=== PATIENT | female | born 1955 | race Caucasian/White ===

== ENCOUNTER → 2017-04-22 | Outpatient (CLI) | payer MEDICARE, OTHER ==
[~2017-04-22] MED LIST: ALEN10TA4 PO; ALEN70TA3 PO; APIX5TAB PO; COLE625T12 PO; ESTR1TAB15 PO; LACT1CAP6 PO; NAPR500T4 PO; OXYB5TAB7 PO
--- NOTE | 2017-04-22 15:47 | KCIC ---
Left lower extremity venous Doppler dated 04/22/2017. No comparison available. CLINICAL INDICATION: Swelling and pain. FINDINGS: Grayscale, color-flow and spectral waveform analysis performed to include the deep venous system of the bilateral lower extremity. There is occlusive filling defect within the left common femoral vein, superficial femoral vein, posterior tibial vein and peroneal veins of the calf. There is partially occlusive filling defect within the left popliteal vein. Normal compressibility, phasicity and augmentation of flow on the right. IMPRESSION: 1. Extensive left lower extremity deep vein thrombosis. 2. No evidence of DVT on the right. Results discussed with nurse at Dr. Rosales's office at approximately 3:20 PM on the day of exam. The patient will be sent to the ER for further evaluation. Electronically signed by: Salas Marcial MD (04/22/2017 3:20 PM) [facility]-[id number]
== END | disposition home or self-care (01) ==
LOC: KCIC US 14:29
PROVIDERS: ATTEND Nurse Practitioner Family
DX: I82.402 Acute embolism and thrombosis of unspecified deep veins of left lower extremity (principal); M79.89 Other specified soft tissue disorders
CPT/HCPCS: 93970

== ENCOUNTER → 2017-05-08 | Outpatient (CLI) | payer MEDICARE, OTHER ==
[2017-04-24 11:00] VITALS: BP 110/59
--- NOTE | 2017-05-08 16:07 | KCIC ---
EXT NON VASC LEFT History: Left knee pain, question synovial cyst Comparison: None. Findings: Limited sonographic images of the left popliteal fossa are submitted. No discrete fluid collection is demonstrated. Impression: 1. No fluid collection is demonstrated of the left popliteal fossa. Electronically signed by: Eyal Fong MD (05/08/2017 4:04 PM) [facility]-KCIC1
--- NOTE | 2017-05-08 16:09 | KCIC ---
KNEE LEFT 2V History: Left knee pain, history of DVT, limited mobility Comparison: None. Findings: 2 views of the left knee are submitted. There is bone demineralization, could be due to disuse. No acute fracture or significant suprapatellar joint effusion is identified. Impression: 1. No acute osseous abnormality is identified. There is bone demineralization. Electronically signed by: Eyal Fong MD (05/08/2017 4:05 PM) [facility]-KCIC1
== END | disposition home or self-care (01) ==
LOC: KCIC US 10:46
PROVIDERS: ATTEND Nurse Practitioner Family
DX: M81.8 Other osteoporosis without current pathological fracture (principal); M71.38 Other bursal cyst, other site; Z86.718 Personal history of other venous thrombosis and embolism
CPT/HCPCS: 73560; 76881

== ENCOUNTER 2017-08-05 00:40 | Inpatient (IN) | payer MEDICARE, OTHER ==
[2017-08-05] MEDS ORDERED: IV NORMAL SALINE 1000ML BAG 1,000 ML IV (01:00)
[2017-08-05 01:11] LABS: BILIRUBIN,URINE SMALL (NEG); CLARITY,URINE CLOUDY; COLOR,URINE AMBER; GLUCOSE,URINE NEGATIVE (NEG); NITRITE,URINE NEGATIVE (NEG); PROTEIN,URINE 100 mg/dL (NEG-TRACE); UROBILINOGEN,URINE 0.2 mg/dL (0.2 mg/dL)
[2017-08-05] MEDS: IV NORMAL SALINE 1000ML BAG 1,000 ML IV ×5 (01:15→23:38)
[2017-08-05] MEDS ORDERED: IBUPROFEN 400 MG TABLET. PO ×2 (01:18→01:19)
[2017-08-05 01:19] LABS: ADD MAN DIFF? YES; BASO # 0.1 x10^3/uL (0.0-0.2); BASO % 1 % (0-3); EOS % 0 % (0-3); HEMATOCRIT 36.8 % (36.0-47.0); HEMOGLOBIN 11.9 g/dL (12.0-15.5); LYMPH # 0.2 x10^3/uL (1.0-4.8); LYMPH % 2 % (24-48); MEAN CORPUSCULAR HEMOGLOBIN 26 pg (25-35); MEAN CORPUSCULAR HGB CONC 32 g/dL (31-37); MEAN CORPUSCULAR VOLUME 80 fL (79-100); MONO # 0.3 x10^3/uL (0.0-1.1); MONO % 3 % (0-9); NEUT # 9.4 x10^3uL (1.8-7.7); NEUT % 94 % (31-73); PLATELET COUNT 248 x10^3/uL (140-400); RED BLOOD COUNT 4.61 x10^6/uL (3.50-5.40); RED CELL DISTRIBUTION WIDTH 16.7 % (11.5-14.5)
[2017-08-05] MEDS: IBUPROFEN 400 MG TABLET. PO (01:20)
[2017-08-05] MEDS: ACETAMINOPHEN 500 MG TABLET PO (01:20)
[2017-08-05 01:23] LABS: BACTERIA,URINE FEW /HPF (0-FEW); RBC,URINE >40 /HPF (0-2)
[2017-08-05 01:24] LABS: AMORPHOUS SEDIMENT,UR PRESENT /HPF; HYALINE CASTS, URINE FEW /HPF; SQUAMOUS EPITHELIAL CELL,UR OCC /LPF
[2017-08-05 01:34] LABS: ANION GAP 10 (6-14); BLOOD UREA NITROGEN 22 mg/dL (7-20); BUN/CREATININE RATIO 28 (6-20); CALCIUM 8.8 mg/dL (8.5-10.1); CARBON DIOXIDE 26 mmol/L (21-32); CHLORIDE 103 mmol/L (98-107); CREATININE 0.8 mg/dL (0.6-1.0); GFR 72.9; GLUCOSE 130 mg/dL (70-99); POTASSIUM 4.2 mmol/L (3.5-5.1); SODIUM 139 mmol/L (136-145)
[2017-08-05 01:40] LABS: ALBUMIN 2.9 g/dL (3.4-5.0); ALBUMIN/GLOBULIN RATIO 0.7 (1.0-1.7); ALK PHOS 52 U/L (46-116); ALT (SGPT) 19 U/L (14-59); AST (SGOT) 32 U/L (15-37); MAGNESIUM 1.9 mg/dL (1.8-2.4); TOTAL BILIRUBIN 0.4 mg/dL (0.2-1.0); TOTAL PROTEIN 7.3 g/dL (6.4-8.2)
[2017-08-05 01:42] LABS: LACTIC ACID 3.3 mmol/L (0.4-2.0)
[2017-08-05 01:45] LABS: TROPONINI 0.099 ng/mL (0.000-0.055)
[2017-08-05 01:47] LABS: POC GLUCOSE 193 mg/dL (70-99)
[2017-08-05] MEDS: IV RINGERS,LACTATED 500ML 500 ML IV (01:50)
[2017-08-05] MEDS: ASPIRIN CHEWABLE 81 MG TABLET. PO (01:57)
[2017-08-05 01:58] LABS: INR 1.4 (0.8-1.1); PARTIAL THROMBOPLASTIN TIME 28 SEC (24-38); PROTHROMBIN TIME PATIENT 16.2 SEC (11.7-14.0)
[2017-08-05] MEDS: IV RINGERS,LACTATED 500ML 1,000 ML IV (02:20)
[2017-08-05] MEDS: PIPERACILLIN/TAZOBACTAM 3.375 GM in IV NORMAL SALINE 100ML 100 ML IV (02:27)
[2017-08-05 02:34] LABS: INFLUENZA A PATIENT NEGATIVE (NEGATIVE); INFLUENZA B PATIENT NEGATIVE (NEGATIVE); OBC FLU VALID
[2017-08-05] MEDS ORDERED: ONDANSETRON PF 4 MG/2 ML VIAL. IV ×2 (02:45→09:00)
[2017-08-05] MEDS: IV RINGERS,LACTATED 1000ML 1,000 ML IV (02:57)
[2017-08-05 03:55] LABS: % BANDS 12 % (0-9); % MONOS 3 % (0-10); % SEGS 85 % (35-66); PLT ESTIMATE ADEQUATE (ADEQUATE)
[2017-08-05] MEDS ORDERED: NOREPINEPHRIN PREMIX 250 ML IV (04:31)
[2017-08-05] MEDS: NOREPINEPHRIN PREMIX 250 ML IV (04:37)
[2017-08-05] MEDS: VANCOMYCIN 1GM IVPB FOR OMNI 250 ML IV (04:55)
[2017-08-05 05:24] LABS: LACTIC ACID 1.8 mmol/L (0.4-2.0)
[2017-08-05 06:08] LABS: TROPONINI 0.147 ng/mL (0.000-0.055)
[2017-08-05] MEDS ORDERED: PNEUMOCOCCAL VAX SCREEN BY RX. MC (07:30)
[2017-08-05] MEDS ORDERED: hydrALAZINE 20 MG/ML VIAL. IVP (09:00)
[2017-08-05] MEDS ORDERED: traMADol 50 MG TABLET PO (09:00)
[2017-08-05] MEDS ORDERED: MORPHINE SULFATE 4 MG/ML DISP.SYRIN. IV (09:00)
[2017-08-05] MEDS ORDERED: DOCUSATE SODIUM 100 MG CAPSULE. PO (09:00)
[2017-08-05 09:10] LABS: TROPONINI 0.086 ng/mL (0.000-0.055)
[2017-08-05 09:55] LABS: THYROID STIM HORMONE (TSH) 1.022 uIU/mL (0.358-3.74)
[2017-08-05 09:57] LABS: CKMB INDEX 0.9 % (0-4); CKMB MASS 4.3 ng/mL (0.0-3.6); CREATINE KINASE 496 U/L (26-192)
[2017-08-05] MEDS: cefTRIAXone IV Push 1 GM VIAL. IVP (10:42)
[2017-08-05] MEDS: AZITHROMYCIN 500 MG in IV DEXTROSE 5 %-0.2 % NACL 250 ML IV (10:42)
[2017-08-05] MEDS ORDERED: NAPROXEN 500 MG TABLET PO (10:45)
[2017-08-05] MEDS ORDERED: COLESEVELAM HCL 625 MG TABLET PO (11:00)
[2017-08-05] MEDS: LACTOBACILLUS RHAMNOSUS GG 1 CAPSULE. PO ×2 (11:04→20:49)
[2017-08-05] MEDS: APIXABAN 5 MG TABLET. PO ×2 (11:04→20:49)
[2017-08-05] MEDS: predniSONE 5 MG TABLET PO (11:04)
[2017-08-05] MEDS: OXYBUTYNIN CHLORIDE 5 MG TABLET PO ×2 (11:04→20:48)
[2017-08-05 11:24] LABS: PROCALCITONIN 0.64 ng/mL (0.00-0.10)
[2017-08-05] MEDS: ANTI-COAG MONITOR BY PHARMACY. MC (12:23)
[2017-08-05] MEDS ORDERED: NON FORMULARY ITEM (Alendronate Sodium (Fosamax) 1 TAB) PO (16:00)
[2017-08-05] MEDS: FAMOTIDINE 20 MG TABLET. PO (20:49)
[2017-08-05] MEDS ORDERED: ESTRADIOL 1 MG TABLET. PO (21:00)
[2017-08-06 03:21] LABS: MRSA BY PCR Negative (Negative)
[2017-08-06 03:55] LABS: ADD MAN DIFF? NO
[2017-08-06 03:58] LABS: BASO % 0 % (0-3); EOS # 0.1 x10^3/uL (0.0-0.7); EOS % 1 % (0-3); HEMATOCRIT 31.7 % (36.0-47.0); HEMOGLOBIN 10.5 g/dL (12.0-15.5); LYMPH # 0.7 x10^3/uL (1.0-4.8); LYMPH % 10 % (24-48); MEAN CORPUSCULAR HEMOGLOBIN 26 pg (25-35); MEAN CORPUSCULAR HGB CONC 33 g/dL (31-37); MEAN CORPUSCULAR VOLUME 79 fL (79-100); MONO # 0.3 x10^3/uL (0.0-1.1); MONO % 5 % (0-9); NEUT # 5.8 x10^3uL (1.8-7.7); NEUT % 85 % (31-73); PLATELET COUNT 226 x10^3/uL (140-400); RED CELL DISTRIBUTION WIDTH 16.3 % (11.5-14.5); WHITE BLOOD COUNT 6.8 x10^3/uL (4.0-11.0)
[2017-08-06 04:12] LABS: ANION GAP 6 (6-14); BLOOD UREA NITROGEN 7 mg/dL (7-20); CALCIUM 7.1 mg/dL (8.5-10.1); CARBON DIOXIDE 26 mmol/L (21-32); CHLORIDE 107 mmol/L (98-107); CREATININE 0.5 mg/dL (0.6-1.0); GFR 125.4; GLUCOSE 93 mg/dL (70-99); POTASSIUM 3.1 mmol/L (3.5-5.1); SODIUM 139 mmol/L (136-145)
[2017-08-06] MEDS: ACETAMINOPHEN 325 MG TABLET. PO (04:12)
[2017-08-06] MEDS: APIXABAN 5 MG TABLET. PO ×2 (08:32→20:27)
[2017-08-06] MEDS: OXYBUTYNIN CHLORIDE 5 MG TABLET PO ×2 (08:32→20:27)
[2017-08-06] MEDS: LACTOBACILLUS RHAMNOSUS GG 1 CAPSULE. PO ×2 (08:32→20:27)
[2017-08-06] MEDS: predniSONE 20 MG TABLET PO (08:32)
[2017-08-06] MEDS: cefTRIAXone IV Push 1 GM VIAL. IVP (08:33)
[2017-08-06] MEDS: IV NORMAL SALINE 1000ML BAG 1,000 ML IV (09:38)
[2017-08-06] MEDS: ANTI-COAG MONITOR BY PHARMACY. MC (09:41)
[2017-08-06] MEDS: IOHEXOL 300 MG/ML 100ML VIAL. IV (11:15)
[2017-08-06] MEDS: IOHEXOL 240 MG/ML 50ML VIAL. PO (11:15)
[2017-08-06] MEDS: AZITHROMYCIN 500 MG in IV DEXTROSE 5 %-0.2 % NACL 250 ML IV ×2 (12:28→13:12)
[2017-08-06] MEDS: POTASSIUM CHLORIDE 20 MEQ TABLET.ER. PO (12:28)
[2017-08-06] MEDS: POTASSIUM CL 40MEQ IN 0.9%NACL 1,000 ML IV (13:12)
[2017-08-06] MEDS: FAMOTIDINE 20 MG TABLET. PO (20:27)
[2017-08-07] MEDS: POTASSIUM CL 40MEQ IN 0.9%NACL 1,000 ML IV ×3 (01:23→15:53)
[2017-08-07 06:23] LABS: HEMATOCRIT 30.2 % (36.0-47.0); MEAN CORPUSCULAR HEMOGLOBIN 26 pg (25-35); MEAN CORPUSCULAR HGB CONC 33 g/dL (31-37); MEAN CORPUSCULAR VOLUME 79 fL (79-100); PLATELET COUNT 248 x10^3/uL (140-400); RED BLOOD COUNT 3.84 x10^6/uL (3.50-5.40); RED CELL DISTRIBUTION WIDTH 16.8 % (11.5-14.5); WHITE BLOOD COUNT 6.8 x10^3/uL (4.0-11.0)
[2017-08-07 06:41] LABS: ALBUMIN 1.8 g/dL (3.4-5.0); ALBUMIN/GLOBULIN RATIO 0.5 (1.0-1.7); ALK PHOS 43 U/L (46-116); ALT (SGPT) 29 U/L (14-59); ANION GAP 5 (6-14); AST (SGOT) 33 U/L (15-37); BLOOD UREA NITROGEN 7 mg/dL (7-20); BUN/CREATININE RATIO 14 (6-20); CALCIUM 6.4 mg/dL (8.5-10.1); CARBON DIOXIDE 27 mmol/L (21-32); CHLORIDE 111 mmol/L (98-107); CREATININE 0.5 mg/dL (0.6-1.0); GFR 125.4; GLUCOSE 100 mg/dL (70-99); POTASSIUM 3.9 mmol/L (3.5-5.1); SODIUM 143 mmol/L (136-145); TOTAL BILIRUBIN 0.2 mg/dL (0.2-1.0); TOTAL PROTEIN 5.3 g/dL (6.4-8.2)
[2017-08-07] MEDS: OXYBUTYNIN CHLORIDE 5 MG TABLET PO ×2 (07:50→20:51)
[2017-08-07] MEDS: APIXABAN 5 MG TABLET. PO ×2 (07:50→20:51)
[2017-08-07] MEDS: LACTOBACILLUS RHAMNOSUS GG 1 CAPSULE. PO ×2 (07:50→20:51)
[2017-08-07] MEDS: predniSONE 20 MG TABLET PO (07:51)
[2017-08-07] MEDS: cefTRIAXone IV Push 1 GM VIAL. IVP (07:53)
[2017-08-07 08:26] LABS: SEDIMENTATION RATE 30 (0-25)
[2017-08-07] MEDS: ANTI-COAG MONITOR BY PHARMACY. MC (10:35)
[2017-08-07] MEDS: FAMOTIDINE 20 MG TABLET. PO (20:51)
[2017-08-08] MEDS: POTASSIUM CL 40MEQ IN 0.9%NACL 1,000 ML IV ×3 (01:44→21:50)
[2017-08-08] MEDS: APIXABAN 5 MG TABLET. PO ×2 (08:41→20:32)
[2017-08-08] MEDS: OXYBUTYNIN CHLORIDE 5 MG TABLET PO ×2 (08:41→20:32)
[2017-08-08] MEDS: LACTOBACILLUS RHAMNOSUS GG 1 CAPSULE. PO ×2 (08:41→20:32)
[2017-08-08] MEDS: predniSONE 20 MG TABLET PO (08:42)
[2017-08-08] MEDS: IPRATRPIUM/ALBUTEROL 0.5/2.5MG 3 ML NEBU. NEB ×4 (09:30→19:48)
[2017-08-08] MEDS: ANTI-COAG MONITOR BY PHARMACY. MC (13:19)
[2017-08-08] MEDS: FAMOTIDINE 20 MG TABLET. PO (20:32)
[2017-08-09 05:04] LABS: ADD MAN DIFF? NO
[2017-08-09 05:13] LABS: BASO % 0 % (0-3); EOS % 0 % (0-3); HEMATOCRIT 31.2 % (36.0-47.0); HEMOGLOBIN 10.1 g/dL (12.0-15.5); LYMPH # 0.9 x10^3/uL (1.0-4.8); LYMPH % 13 % (24-48); MEAN CORPUSCULAR HEMOGLOBIN 26 pg (25-35); MEAN CORPUSCULAR HGB CONC 32 g/dL (31-37); MEAN CORPUSCULAR VOLUME 79 fL (79-100); MONO # 0.4 x10^3/uL (0.0-1.1); MONO % 5 % (0-9); NEUT % 82 % (31-73); PLATELET COUNT 300 x10^3/uL (140-400); RED BLOOD COUNT 3.94 x10^6/uL (3.50-5.40); RED CELL DISTRIBUTION WIDTH 17.1 % (11.5-14.5); WHITE BLOOD COUNT 7.3 x10^3/uL (4.0-11.0)
[2017-08-09 05:43] LABS: ANION GAP 7 (6-14); BLOOD UREA NITROGEN 7 mg/dL (7-20); CALCIUM 7.4 mg/dL (8.5-10.1); CARBON DIOXIDE 27 mmol/L (21-32); CHLORIDE 110 mmol/L (98-107); CREATININE 0.5 mg/dL (0.6-1.0); GFR 125.4; GLUCOSE 91 mg/dL (70-99); POTASSIUM 4.8 mmol/L (3.5-5.1); SODIUM 144 mmol/L (136-145)
[2017-08-09] MEDS: IPRATRPIUM/ALBUTEROL 0.5/2.5MG 3 ML NEBU. NEB ×2 (07:06→12:36)
[2017-08-09] MEDS: APIXABAN 5 MG TABLET. PO (09:23)
[2017-08-09] MEDS: OXYBUTYNIN CHLORIDE 5 MG TABLET PO (09:23)
[2017-08-09] MEDS: LACTOBACILLUS RHAMNOSUS GG 1 CAPSULE. PO (09:23)
[2017-08-09] MEDS: predniSONE 20 MG TABLET PO (09:27)
[2017-08-09] MEDS: POTASSIUM CL 40MEQ IN 0.9%NACL 1,000 ML IV (09:28)
[2017-08-09] MEDS: ANTI-COAG MONITOR BY PHARMACY. MC (11:32)
== END 2017-08-09 14:18 | disposition home or self-care (01) | DRG 871 ==
LOC: ER 00:40 → 6 SOUTH 08-06 15:50 → 1 WEST ICU 01:54
DX: A41.9 Sepsis, unspecified organism (principal); J18.9 Pneumonia, unspecified organism; R65.21 Severe sepsis with septic shock; N17.9 Acute kidney failure, unspecified; G71.0 Muscular dystrophy; E86.0 Dehydration; E44.1 Mild protein-calorie malnutrition; G11.9 Hereditary ataxia, unspecified; Z68.1 Body mass index [BMI] 19.9 or less, adult; E86.1 Hypovolemia; E87.6 Hypokalemia; K21.9 Gastro-esophageal reflux disease without esophagitis; M81.0 Age-related osteoporosis without current pathological fracture; Z82.49 Family history of ischemic heart disease and other diseases of the circulatory system; Z86.711 Personal history of pulmonary embolism; Z86.718 Personal history of other venous thrombosis and embolism; Z90.710 Acquired absence of both cervix and uterus; Z99.3 Dependence on wheelchair; Z88.2 Allergy status to sulfonamides; G70.9 Myoneural disorder, unspecified; D63.8 Anemia in other chronic diseases classified elsewhere; J20.9 Acute bronchitis, unspecified; Z74.01 Bed confinement status
CPT/HCPCS: 36415; 71045; 71260; 74177; 80048; 80053; 81001; 82533; 82553; 82962; 83605; 83735; 84145; 84443; 84484; 85007; 85025; 85027; 85610; 85651; 85730; 87040; 87641; 87804; 87804-59; 93005; 93306; 94640; 94760; 96361; 96374; 97162-GP; 97165-GO; 97530-GP; 97535-GO; 99291; 99291-25; J0456; J0696; J2543; J3370; J3480; J7030; J7120; J7512; J7620; P9612; Q9966; Q9967

== ENCOUNTER 2017-11-10 19:52 | Emergency (ER) | payer MEDICARE, OTHER | END 2017-11-10 21:48 | disposition home or self-care (01) | LOC: ER 19:52 | DX: T17.328A Food in larynx causing other injury, initial encounter (principal); K21.9 Gastro-esophageal reflux disease without esophagitis; Z88.2 Allergy status to sulfonamides; X58.XXXA Exposure to other specified factors, initial encounter; Y93.89 Activity, other specified; Y99.8 Other external cause status; Y92.89 Other specified places as the place of occurrence of the external cause | CPT/HCPCS: 71045; 99283 ==

== ENCOUNTER → 2017-11-10 | Outpatient (CLI) | payer MEDICARE, OTHER | END | disposition home or self-care (01) | LOC: KCIC DEXA 09:40 | DX: Z12.31 Encounter for screening mammogram for malignant neoplasm of breast (principal); Z13.820 Encounter for screening for osteoporosis; M85.89 Other specified disorders of bone density and structure, multiple sites; Z78.0 Asymptomatic menopausal state | CPT/HCPCS: 77063; 77067; 77080 ==

== ENCOUNTER → 2019-02-15 | Outpatient (CLI) | payer MEDICARE, OTHER ==
[2017-11-10 20:10] VITALS: BP 132/65
[~2019-02-15] MED LIST changes: -ALEN10TA4 PO; +ALEN10TA5 PO; +LEVO500T59 PO; +NAPR-514 PO; -NAPR500T4 PO; +PRED5TAB PO
--- NOTE | 2019-02-15 10:21 | RAD ---
MR#: [id number] Date of Study: 02/15/2019 Ordering Physician: BARRON LIGHT, Referring Physician: BARRON LIGHT, Tech: TIMOTHY Bolton, RDMS, RTR APPROVED REPORT Patient Location: OUT-PATIENT Indications PAD VELOCITY AND DOPPLER WAVEFORM ANALYSIS RIGHT cm/secWaveformSeverity LEFT cm/secWaveform Severity pCFA 90.4BiphasicpCFA 132.3Biphasic Prof Fem Art. 61.5Prof Fem Art. 69.4 Fem Art Prox. 92.5BiphasicFem Art Prox. 114.0Biphasic Fem Art Mid. 60.7BiphasicFem Art Mid. 69.4Biphasic Fem Art Dist. 99.1BiphasicFem Art Dist. 116.7Biphasic Pop Art(Fossa) 86.8BiphasicPop Art(AK) 64.3Biphasic APPLIED COMPUTER SCIENCE PROFESSOR Dist. 61.3BiphasicPTA Dist. 61.1Biphasic Per Art Dist.44.4BiphasicPer Art Dist.42.6Biphasic RADHA Dist. 88.0BiphasicATA Dist. 67.1Biphasic DPA 28BiphasicDPA 21Biphasic Findings Grayscale images of the bilateral lower extremity arterial vessels reveal moderate diffuse plaque. No high-grade focal stenosis is identified bilaterally in the common femoral to popliteal segments. Bel ow the knee there is three-vessel runoff in a biphasic wave pattern bilaterally. There is likely dist al small vessel disease involving the bilateral dorsalis pedis vessels. Critical Notification Critical Value: No <Conclusion> 1. Distal small vessel disease at the level of the dorsalis pedis without any focal high-grade obstru ction noted. Signed by : Barron Light, Electronically Approved : 02/15/2019 10:21:26
== END | disposition home or self-care (01) ==
LOC: US 08:41
PROVIDERS: ATTEND Internal Medicine Cardiovascular Disease
DX: I70.203 Unspecified atherosclerosis of native arteries of extremities, bilateral legs (principal); I73.89 Other specified peripheral vascular diseases
CPT/HCPCS: 93925

== ENCOUNTER 2020-02-04 17:40 | Inpatient (IN) | payer MEDICARE, OTHER ==
[~2020-02-04] VITALS: Ht 162.6 cm; Wt 41.3 kg
[~2020-02-04 17:40] MED LIST changes: -ALEN10TA5 PO; +ALEN10TA8 PO; +ESTR-113 PO; -ESTR1TAB15 PO; +OXYB5TAB10 PO; -OXYB5TAB7 PO
[2020-02-04] MEDS ORDERED: IV NORMAL SALINE 1000ML BAG 1,000 ML IV ONE ×2 (18:00→20:45)
[2020-02-04 18:49] LABS: BILIRUBIN,URINE NEGATIVE (NEG); CLARITY,URINE CLOUDY; COLOR,URINE YELLOW; NITRITE,URINE POSITIVE (NEG); PROTEIN,URINE NEGATIVE (NEG-TRACE); UROBILINOGEN,URINE 0.2 mg/dL (0.2 mg/dL)
--- NOTE | 2020-02-04 18:51 | RAD ---
Exam: CT head INDICATION: Weakness TECHNIQUE: Sequential axial images through the head were obtained without the administration of IV contrast. Comparisons: None FINDINGS: No focal parenchymal lesion or hemorrhage is identified. There is no midline shift or sulcal effacement. No acute vascular territory infarction is identified. Marroquin-white distinction is preserved. The ventricular system is within normal limits without compression hydrocephalus. The basal cisterns are well maintained. The visualized portions of the paranasal sinuses and mastoid air cells are well-pneumatized. No acute fractures. IMPRESSION: No acute intracranial abnormality. Exposure: One or more of the following in the visualized dose reduction techniques were utilized for this examination: 1. Automated exposure control 2. Adjustment of the MA and/or KV according to patient size Use of iterative of reconstructive technique Electronically signed by: Leanna Hoffman MD (02/04/2020 6:48 PM) [id number]
--- NOTE | 2020-02-04 18:53 | EKG ---
[facility] [address] [place] [address] Test Date: 2020-02-04 Test Time: 18:37:19 Pat Name: LINDA HERRERA Department: Room: Gender: F Juvenile Justice Specialist: LOU : 1955 Requested By: FARIBA CARRION Order Number: [id number] Reading MD: Measurements Intervals [place] Rate: 98 P: 90 [place]: 152 QRS: 66 QRSD: 72 T: 70 QT: 330 QTc: 423 Interpretive Statements SINUS RHYTHM OTHERWISE NORMAL ECG RI6.02 No previous ECG available for comparison
[2020-02-04 19:09] LABS: BACTERIA,URINE MANY /HPF (0-FEW); WBC,URINE TNTC /HPF (0-4)
--- NOTE | 2020-02-04 19:10 | RAD ---
Exam: Chest one view INDICATION: Weakness TECHNIQUE: Frontal view of the chest Comparisons: 11/10/2017 FINDINGS: The cardiomediastinal silhouette and pulmonary vessels are within normal limits. The lung and pleural spaces are clear. Chronic appearing rib fractures are noted. IMPRESSION: No acute cardiopulmonary process. Electronically signed by: Leanna Hoffman MD (02/04/2020 7:07 PM) [id number]
[2020-02-04 19:25] LABS: BASO % 0 % (0-3); EOS % 0 % (0-3); HEMATOCRIT 36.8 % (36.0-47.0); HEMOGLOBIN 11.8 g/dL (12.0-15.5); LYMPH # 0.9 x10^3/uL (1.0-4.8); LYMPH % 7 % (24-48); MEAN CORPUSCULAR HEMOGLOBIN 26 pg (25-35); MEAN CORPUSCULAR HGB CONC 32 g/dL (31-37); MEAN CORPUSCULAR VOLUME 80 fL (79-100); MONO # 0.6 x10^3/uL (0.0-1.1); MONO % 5 % (0-9); NEUT # 10.4 x10^3/uL (1.8-7.7); NEUT % 87 % (31-73); PLATELET COUNT 262 x10^3/uL (140-400); RED CELL DISTRIBUTION WIDTH 15.5 % (11.5-14.5); WHITE BLOOD COUNT 11.9 x10^3/uL (4.0-11.0)
[2020-02-04 19:35] LABS: CALCIUM 8.1 mg/dL (8.5-10.1); CREATININE 0.6 mg/dL (0.6-1.0); GFR 100.6; POTASSIUM 4.3 mmol/L (3.5-5.1)
[2020-02-04 19:37] LABS: PROTHROMBIN TIME PATIENT 13.8 SEC (11.7-14.0)
[2020-02-04 19:41] LABS: ALBUMIN 2.5 g/dL (3.4-5.0); ALBUMIN/GLOBULIN RATIO 0.8 (1.0-1.7); TOTAL BILIRUBIN 0.4 mg/dL (0.2-1.0); TOTAL PROTEIN 5.6 g/dL (6.4-8.2)
[2020-02-04] MEDS ORDERED: cefTRIAXone IV Push 1 GM VIAL. IVP ONE (19:45)
[2020-02-04 20:01] LABS: % BANDS 5 % (0-9); % EOS 1 % (0-5); % LYMPHS 7 % (24-48); % MONOS 5 % (0-10); % SEGS 82 % (35-66)
[2020-02-04 20:02] LABS: PLT ESTIMATE ADEQUATE (ADEQUATE)
--- NOTE | 2020-02-04 20:03 | PHYS DOC ---
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 Patient is also complaining of chills around 2 PM. Denies any cough or congestion. She states she has history of chronic UTIs. Denies any nausea, vomiting, abdominal pain. Denies any chest pain or shortness of breath. (FARIBA CARRION APRN) Review of Systems: Review of Systems: Constitutional: Reports generalized weakness, reports chills. Denies fever Eyes: Denies change in visual acuity. [] HENT: Denies nasal congestion or sore throat. [] Respiratory: Denies cough or shortness of breath. [] Cardiovascular: Denies chest pain or edema. [] GI: Denies abdominal pain, nausea, vomiting, bloody stools or diarrhea. [] : Denies dysuria. [] Musculoskeletal: Denies back pain or joint pain. [] Integument: Denies rash. [] Neurologic: Denies headache, focal weakness or sensory changes. [] Psychiatric: Denies depression or anxiety. [] (FARIBA CARRION APRN) Heart Score: Risk Factors: Risk Factors: DM, Current or recent (<one month) smoker, HTN, HLP, family hi story of CAD, obesity. Risk Scores: Score 0 - 3: 2.5% MACE over next 6 weeks - Discharge Home Score 4 - 6: 20.3% MACE over next 6 weeks - Admit for Clinical Observation Score 7 - 10: 72.7% MACE over next 6 weeks - Early Invasive Strategies (FARIBA CARRION APRN) Current Medications: Current Medications Medications (Trade) Dose Ordered Sig/Devendra Start Time Stop Time Status Last Admin Dose Admin Ceftriaxone Sodium (Rocephin) 1 gm 1X ONCE 02/04/20 19:45 02/04/20 19:46 DC Sodium Chloride 1,000 ml @ 1,000 mls/hr 1X ONCE 02/04/20 18:00 02/04/20 18:59 DC 02/04/20 18:31 1,000 MLS/HR (FARIBA CARRION APRN) Allergies: Allergies: Allergies Coded Allergies Type Severity Reaction Last Updated Verified Sulfa (Sulfonamide Antibiotics) Allergy Intermediate RASH 11/21/13 Yes (FARIBA CARRION APRN) Physical Exam: PE: Constitutional: No acute distress, non-toxic appearance. [] HENT: Normocephalic, atraumatic, bilateral external ears normal, oropharynx moist, no oral exudates, nose normal. Dry mucous membranes Eyes: PERRLA, EOMI, conjunctiva normal, no discharge. [] Neck: Normal range of motion, no tenderness, supple, no stridor. [] Cardiovascular:Heart rate regular rhythm, no murmur [] Lungs & Thorax: Bilateral breath sounds clear to auscultation [] Abdomen: Bowel sounds normal, soft, no tenderness, no masses, no pulsatile m asses. [] Skin: Warm, dry, no erythema, no rash. [] Back: No tenderness, no CVA tenderness. [] Extremities: Muscle wasting noted to bilateral upper and lower extremities with deformities and contracture to BUE and BLE-chronic from Cerebellar ataxia. No tenderness, no cyanosis, no clubbing, ROM intact, no edema. [] Neurologic: Alert and oriented X 3, normal motor function, normal sensory function, no focal deficits noted. [] Psychologic: Affect normal, judgement normal, mood normal. [] (FARIBA CARRION FIREBREAK CUTTER) Current Patient Data: Labs: Laboratory Tests Test 02/04/20 18:39 02/04/20 19:10 Urine Collection Type Unknown Urine Color Yellow Urine Clarity Cloudy Urine pH 6.0 (<5.0-8.0) Urine Specific [place] 1.020 (1.000-1.030) Urine Protein Negative mg/dL (NEG-TRACE) Urine Glucose (UA) Negative mg/dL (NEG) Urine Ketones (Stick) Negative mg/dL (NEG) Urine Blood Large (NEG) Urine Nitrite Positive (NEG) Urine Bilirubin Negative (NEG) Urine Urobilinogen Dipstick 0.2 mg/dL (0.2 mg/dL) Urine Leukocyte Esterase Large (NEG) Urine RBC 6-10 /HPF (0-2) Urine WBC Tntc /HPF (0-4) Urine Bacteria Many /HPF (0-FEW) White Blood Count 11.9 x10^3/uL (4.0-11.0) H Red Blood Count 4.60 x10^6/uL (3.50-5.40) Hemoglobin 11.8 g/dL (12.0-15.5) L Hematocrit 36.8 % (36.0-47.0) Mean Corpuscular Volume 80 fL (79-100) Mean Corpuscular Hemoglobin 26 pg (25-35) Mean Corpuscular Hemoglobin Concent 32 g/dL (31-37) Red Cell Distribution Width 15.5 % (11.5-14.5) H Platelet Count 262 x10^3/uL (140-400) Neutrophils (%) (Auto) 87 % (31-73) H Lymphocytes (%) (Auto) 7 % (24-48) L Monocytes (%) (Auto) 5 % (0-9) Eosinophils (%) (Auto) 0 % (0-3) Basophils (%) (Auto) 0 % (0-3) Neutrophils # (Auto) 10.4 x10^3/uL (1.8-7.7) H Lymphocytes # (Auto) 0.9 x10^3/uL (1.0-4.8) L Monocytes # (Auto) 0.6 x10^3/uL (0.0-1.1) Eosinophils # (Auto) 0.0 x10^3/uL (0.0-0.7) Basophils # (Auto) 0.0 x10^3/uL (0.0-0.2) Platelet Estimate Pending Prothrombin Time 13.8 SEC (11.7-14.0) Prothrombin Time INR 1.1 (0.8-1.1) Sodium Level 141 mmol/L (136-145) Potassium Level 4.3 mmol/L (3.5-5.1) Chloride Level 105 mmol/L (98-107) Carbon Dioxide Level 30 mmol/L (21-32) Anion Gap 6 (6-14) Blood Urea Nitrogen 17 mg/dL (7-20) Creatinine 0.6 mg/dL (0.6-1.0) Estimated GFR (Cockcroft-Gault) 100.6 BUN/Creatinine Ratio 28 (6-20) H Glucose Level 84 mg/dL (70-99) Calcium Level 8.1 mg/dL (8.5-10.1) L Magnesium Level 2.0 mg/dL (1.8-2.4) Total Bilirubin 0.4 mg/dL (0.2-1.0) Aspartate Amino Transferase (AST) 16 U/L (15-37) Alanine Aminotransferase (ALT) 18 U/L (14-59) Alkaline Phosphatase 52 U/L (46-116) Troponin I Quantitative < 0.017 ng/mL (0.000-0.055) TQ-Bji-E-Type Natriuretic Peptide 123 pg/mL (0-124) Total Protein 5.6 g/dL (6.4-8.2) L Albumin 2.5 g/dL (3.4-5.0) L Albumin/Globulin Ratio 0.8 (1.0-1.7) L Thyroid Stimulating Hormone (TSH) 1.370 uIU/mL (0.358-3.74) Laboratory Tests 02/04/20 19:10 Laboratory Tests 02/04/20 19:10 Vital Signs: Vital Signs Date Time Temp Pulse Resp B/P (MAP) Pulse Ox O2 Delivery O2 Flow Rate FiO2 02/04/20 17:55 99.1 119 22 124/60 (81) 97 Room Air 99.1 (FARIBA CARRION APRN) EKG: EKG: [] (FARIBA CARRION APRN) Radiology/Procedures: Radiology/Procedures: [][id number] Singletary Sinus rhythm HR 98 no STEMI[] (FARIBA CARRION APRN) Course & Med Decision Making: Course & Med Decision Making Pertinent Labs and Imaging studies reviewed. (See chart for details) This is a 64-year-old female patient presenting to the ED today complaining of weakness that began this morning when she woke up. CT of the head and chest x-rays are negative for any acute findings. CBC with a WBC of 11.9 and a left shift. Urine analysis noted for UTI. Chemistry with no acute findings. Patient was started on IV fluids and Rocephin. I spoke to patient about her lab work, patient reports she lives at home with the mother who is not able to take care of her especially right now that she is weak and not able to function. She is requesting to be admitted. Spoke with Dr. Fatima who accepted patient for admission professional services manager consult was placed for placement (FRAIBA CARRION APRN) Course & Med Decision Making I have reviewed the PA/WEAPONS MECHANIC's note and Plan of Care. I was available for consultation as needed during the patient's visit in the emergency department. I agree with the clinical impression, plans and disposition. (DEJA SINGLETARY MD) Dragon Disclaimer: Dragon Disclaimer: This electronic medical record was generated, in whole or in part, using a voice recognition dictation system. (FARIBA CARRION APRN) Departure Departure Impression: Primary Impression: UTI (urinary tract infection) Qualified Codes: N39.0 - Urinary tract infection, site not specified Additional Impression: Generalized weakness Disposition: ADMITTED INPATIENT Condition: STABLE Referrals: STARLA ALLEN MD (PCP) Justicifation of Admission Dx: Justifications for Admission: Justification of Admission Dx: Yes (weakness) (FARIBA CARRION APRN) FARIBA CARRION APRN Feb 04, 2020 20:03 DEJA SINGLETARY MD Feb 04, 2020 20:50
[2020-02-04] MEDS ORDERED: ONDANSETRON PF 4 MG/2 ML VIAL. IV PRN ×2 (20:45→22:30)
[2020-02-04] MEDS ORDERED: ACETAMINOPHEN 325 MG TABLET. PO PRN (20:45)
--- NOTE | 2020-02-04 22:20 | NUR ---
Patient admitted from ER to room 404 per cart. Admitting diagnosis: increased weakness and UTI. Patient stated she had chills around 2pm earlier today. Patient is alert and oriented x4. Patient lives with her mother. Patient has muscular dystrophy and is wheelchair bound. Patient is allergic to statins and sulfa. Patient has no skin breakdown. Patient's arms are contracted. Patient is in no acute distress. Will continue to monitor.
[2020-02-04] MEDS: IV NORMAL SALINE 1000ML BAG 1,000 ML IV SCH (22:29)
[2020-02-04] MEDS ORDERED: NAPROXEN 500 MG TABLET PO PRN (22:30)
[2020-02-04] MEDS ORDERED: ACETAMINOPHEN 650 MG SUPP.RECT. PR PRN (22:30)
[2020-02-04] MEDS ORDERED: guaiFENesin ORAL 200 MG/10 ML LIQUID. PO PRN (22:30)
[2020-02-04] MEDS ORDERED: SODIUM PHOSPHATES 19/7GM 133 ML ENEMA. PR PRN (22:30)
[2020-02-04] MEDS ORDERED: 0.9 % SODIUM CHLORIDE 10 ML DISP.SYRIN. IV PRN (22:30)
[2020-02-04] MEDS ORDERED: ALBUTEROL SULFATE 2.5 MG/3 ML NEBU. NEB PRN (22:30)
[2020-02-04] MEDS ORDERED: DOCUSATE SODIUM 100 MG CAPSULE. PO PRN (22:30)
[2020-02-04] MEDS ORDERED: cloNIDine HCL 0.1 MG TABLET PO PRN (22:30)
[2020-02-04 23:00] VITALS: BP 108/35
[2020-02-05] MEDS: ANTI-COAG MONITOR BY PHARMACY. MC PRN (01:38)
[2020-02-05 03:00] VITALS: BP 96/44
[2020-02-05 06:00] LABS: BASO % 0 % (0-3); EOS # 0.1 x10^3/uL (0.0-0.7); EOS % 2 % (0-3); HEMATOCRIT 33.7 % (36.0-47.0); HEMOGLOBIN 11.2 g/dL (12.0-15.5); LYMPH # 0.9 x10^3/uL (1.0-4.8); LYMPH % 11 % (24-48); MEAN CORPUSCULAR HEMOGLOBIN 27 pg (25-35); MEAN CORPUSCULAR HGB CONC 33 g/dL (31-37); MEAN CORPUSCULAR VOLUME 80 fL (79-100); MONO # 0.5 x10^3/uL (0.0-1.1); MONO % 7 % (0-9); NEUT # 6.3 x10^3/uL (1.8-7.7); NEUT % 80 % (31-73); PLATELET COUNT 261 x10^3/uL (140-400); RED BLOOD COUNT 4.22 x10^6/uL (3.50-5.40); RED CELL DISTRIBUTION WIDTH 15.5 % (11.5-14.5); WHITE BLOOD COUNT 7.8 x10^3/uL (4.0-11.0)
[2020-02-05 06:01] LABS: ALBUMIN 2.4 g/dL (3.4-5.0); ALBUMIN/GLOBULIN RATIO 0.8 (1.0-1.7); CALCIUM 7.8 mg/dL (8.5-10.1); CREATININE 0.6 mg/dL (0.6-1.0); GFR 100.6; POTASSIUM 3.9 mmol/L (3.5-5.1); TOTAL BILIRUBIN 0.3 mg/dL (0.2-1.0); TOTAL PROTEIN 5.5 g/dL (6.4-8.2)
[2020-02-05 07:00] VITALS: BP 113/35
[2020-02-05] MEDS: APIXABAN 5 MG TABLET. PO SCH ×2 (09:00→20:57)
[2020-02-05] MEDS: LACTOBACILLUS RHAMNOSUS GG 1 CAPSULE. PO SCH (10:02)
[2020-02-05] MEDS: OXYBUTYNIN CHLORIDE 5 MG TABLET PO SCH (10:03)
[2020-02-05 11:00] VITALS: BP 110/40
--- NOTE | 2020-02-05 11:58 | PDOC1 ---
History and Physical Date of Admission Date of Admission 02/05/2020 Identification/Chief Complaint Chief Complaint I was very weak Source Source: Chart review, Patient History of Present Illness History of Present Illness Patient is a 64-year-old female with past medical history of cerebellar ataxia and autoimmune disease who lives at home with her mother and was in her usual state of juan jose until the morning of her admission when she noticed chills and worsened generalized weakness. She had a similar presentation on 08/05/2017 according to review of her records. At the time oif my visit the patient is in no acute distress and seems to have returned to her baseline. She denies headache no blurred vision, no slurred speech no odynophagia no focal neurological deficits. The patient denies any chest pain palpitations no dyspnea no abdominal pain no nausea vomiting, the patient denies hematuria Patient was brought by her family members to be evaluated. She was found to have a urinary tract infection in the emergency department reason why we were asked to admit the patient for further treatment. Plan of care explained in d etail to the patient and all of her concerns were addressed to the best of my abilities Past Medical History Past Medical History Cerebellar ataxia, osteoporosis, GERD, autoimmune disease? Past Surgical History Past Surgical History: Tonsillectomy, Hysterectomy Family History Family History: Hypertension Social History Smoke: No ALCOHOL: none Drugs: None Current Problem List Problem List Problems Medical Problems: (1) Generalized weakness Status: Acute (2) UTI (urinary tract infection) Status: Acute Current Medications Current Medications Current Medications Medications (Trade) Dose Ordered Sig/Devendra Start Time Stop Time Status Last Admin Dose Admin Acetaminophen (Tylenol Supp) 650 mg PRN Q4HRS PRN 02/04/20 22:30 Acetaminophen (Tylenol) 650 mg PRN Q4HRS PRN 02/04/20 20:45 02/05/20 20:44 Albuterol Sulfate (Ventolin Neb Soln) 2.5 mg PRN Q4HRS PRN 02/04/20 22:30 Apixaban (Eliquis) 5 mg BID 02/05/20 09:00 Ceftriaxone Sodium (Rocephin) 1 gm Q24H 02/05/20 20:00 Clonidine HCl (Catapres) 0.1 mg PRN Q6HRS PRN 02/04/20 22:30 Docusate Sodium (Colace) 100 mg PRN BID PRN 02/04/20 22:30 Guaifenesin (Robitussin) 200 mg PRN Q4HRS PRN 02/04/20 22:30 Info (Anti-Coagulation Monitoring By Pharmacy) 1 each PRN DAILY PRN 02/04/20 22:45 02/05/20 01:38 1 EACH Lactobacillus Rhamnosus (Culturelle) 1 cap DAILY 02/05/20 09:00 02/05/20 10:02 1 CAP Naproxen (Naprosyn) 500 mg PRN BID PRN 02/04/20 22:30 Ondansetron HCl (Zofran) 4 mg PRN Q4HRS PRN 02/04/20 22:30 Oxybutynin Chloride (Ditropan) 10 mg DAILY 02/05/20 09:00 02/05/20 10:03 10 MG Sodium Monofluorophosphate (Fleet Adult) 133 ml PRN DAILY PRN 02/04/20 22:30 Sodium Chloride 1,000 ml @ 55 mls/hr [id number] 02/04/20 22:29 02/04/20 22:29 55 MLS/HR Sodium Chloride (Normal Saline Flush) 3 ml QSHIFT PRN 02/04/20 22:30 Allergies Allergies Allergies Coded Allergies Type Severity Reaction Last Updated Verified Hmutkvg-[id number]-Lfx Reductase Inhibitor Allergy Intermediate 02/04/20 Yes Sulfa (Sulfonamide Antibiotics) Allergy Intermediate RASH 11/21/13 Yes ROS Review of System CONSTITUTIONAL: Pertinent for chills EYES: No recent changes SKIN: No rash or itching CARDIOVASCULAR: No chest pain, syncope, palpitations, or edema RESPIRATORY: No SOB or cough GASTROINTESTINAL: No nausea, vomiting or abdominal pain NEUROLOGICAL: No headaches or weakness ENDOCRINE: No cold or heat intolerance GENITOURINARY: No urgency or frequency of urination MUSCULOSKELETAL: No back pain or joint pain LYMPHATICS: No enlarged lymph nodes PSYCHIATRIC: No anxiety or depression Physical Exam Physical Exam GEN.: No apparent distress. Alert and oriented. HEENT: Head is normocephalic, atraumatic NECK: Supple. LUNGS: Clear to auscultation. HEART: RRR, S1, S2 present. Peripheral pulses intact ABDOMEN: Soft, nontender. Positive bowel sounds. EXTREMITIES: Without any cyanosis. NEUROLOGIC: Normal speech, normal tone PSYCHIATRIC: Normal affect, normal mood. SKIN: No ulcerations Vitals Vitals Vital Signs Date Time Temp Pulse Resp B/P (MAP) Pulse Ox O2 Delivery O2 Flow Rate FiO2 02/05/20 11:00 97.9 86 18 110/40 (63) 97 Room Air 97.9 Labs Labs Laboratory Tests Test 02/04/20 18:39 02/04/20 19:10 02/05/20 00:20 02/05/20 04:00 Urine Collection Type Unknown Urine Color Yellow Urine Clarity Cloudy Urine pH 6.0 (<5.0-8.0) Urine Specific Dorsey 1.020 (1.000-1.030) Urine Protein Negative mg/dL (NEG-TRACE) Urine Glucose (UA) Negative mg/dL (NEG) Urine Ketones (Stick) Negative mg/dL (NEG) Urine Blood Large (NEG) Urine Nitrite Positive (NEG) Urine Bilirubin Negative (NEG) Urine Urobilinogen Dipstick 0.2 mg/dL (0.2 mg/dL) Urine Leukocyte Esterase Large (NEG) Urine RBC 6-10 /HPF (0-2) Urine WBC Tntc /HPF (0-4) Urine Bacteria Many /HPF (0-FEW) White Blood Count 11.9 x10^3/uL (4.0-11.0) 7.8 x10^3/uL (4.0-11.0) Red Blood Count 4.60 x10^6/uL (3.50-5.40) 4.22 x10^6/uL (3.50-5.40) Hemoglobin 11.8 g/dL (12.0-15.5) 11.2 g/dL (12.0-15.5) Hematocrit 36.8 % (36.0-47.0) 33.7 % (36.0-47.0) Mean Corpuscular Volume 80 fL (79-100) 80 fL (79-100) Mean Corpuscular Hemoglobin 26 pg (25-35) 27 pg (25-35) Mean Corpuscular Hemoglobin Concent 32 g/dL (31-37) 33 g/dL (31-37) Red Cell Distribution Width 15.5 % (11.5-14.5) 15.5 % (11.5-14.5) Platelet Count 262 x10^3/uL (140-400) 261 x10^3/uL (140-400) Neutrophils (%) (Auto) 87 % (31-73) 80 % (31-73) Lymphocytes (%) (Auto) 7 % (24-48) 11 % (24-48) Monocytes (%) (Auto) 5 % (0-9) 7 % (0-9) Eosinophils (%) (Auto) 0 % (0-3) 2 % (0-3) Basophils (%) (Auto) 0 % (0-3) 0 % (0-3) Neutrophils # (Auto) 10.4 x10^3/uL (1.8-7.7) 6.3 x10^3/uL (1.8-7.7) Lymphocytes # (Auto) 0.9 x10^3/uL (1.0-4.8) 0.9 x10^3/uL (1.0-4.8) Monocytes # (Auto) 0.6 x10^3/uL (0.0-1.1) 0.5 x10^3/uL (0.0-1.1) Eosinophils # (Auto) 0.0 x10^3/uL (0.0-0.7) 0.1 x10^3/uL (0.0-0.7) Basophils # (Auto) 0.0 x10^3/uL (0.0-0.2) 0.0 x10^3/uL (0.0-0.2) Segmented Neutrophils % 82 % (35-66) Band Neutrophils % 5 % (0-9) Lymphocytes % 7 % (24-48) Monocytes % 5 % (0-10) Eosinophils % 1 % (0-5) Platelet Estimate Adequate (ADEQUATE) Prothrombin Time 13.8 SEC (11.7-14.0) Prothromb Time International Ratio 1.1 (0.8-1.1) Sodium Level 141 mmol/L (136-145) 142 mmol/L (136-145) Potassium Level 4.3 mmol/L (3.5-5.1) 3.9 mmol/L (3.5-5.1) Chloride Level 105 mmol/L (98-107) 107 mmol/L (98-107) Carbon Dioxide Level 30 mmol/L (21-32) 29 mmol/L (21-32) Anion Gap 6 (6-14) 6 (6-14) Blood Urea Nitrogen 17 mg/dL (7-20) 14 mg/dL (7-20) Creatinine 0.6 mg/dL (0.6-1.0) 0.6 mg/dL (0.6-1.0) Estimated GFR (Cockcroft-Gault) 100.6 100.6 BUN/Creatinine Ratio 28 (6-20) 23 (6-20) Glucose Level 84 mg/dL (70-99) 88 mg/dL (70-99) Calcium Level 8.1 mg/dL (8.5-10.1) 7.8 mg/dL (8.5-10.1) Magnesium Level 2.0 mg/dL (1.8-2.4) Total Bilirubin 0.4 mg/dL (0.2-1.0) 0.3 mg/dL (0.2-1.0) Aspartate Amino Transf (AST/SGOT) 16 U/L (15-37) 16 U/L (15-37) Alanine Aminotransferase (ALT/SGPT) 18 U/L (14-59) 17 U/L (14-59) Alkaline Phosphatase 52 U/L (46-116) 49 U/L (46-116) Troponin I Quantitative < 0.017 ng/mL (0.000-0.055) < 0.017 ng/mL (0.000-0.055) < 0.017 ng/mL (0.000-0.055) ZM-Phg-R-Type Natriuretic Peptide 123 pg/mL (0-124) Total Protein 5.6 g/dL (6.4-8.2) 5.5 g/dL (6.4-8.2) Albumin 2.5 g/dL (3.4-5.0) 2.4 g/dL (3.4-5.0) Albumin/Globulin Ratio 0.8 (1.0-1.7) 0.8 (1.0-1.7) Thyroid Stimulating Hormone (TSH) 1.370 uIU/mL (0.358-3.74) Laboratory Tests Test 02/04/20 18:39 02/04/20 19:10 02/05/20 00:20 02/05/20 04:00 Urine Collection Type Unknown Urine Color Yellow Urine Clarity Cloudy Urine pH 6.0 (<5.0-8.0) Urine Specific Dorsey 1.020 (1.000-1.030) Urine Protein Negative mg/dL (NEG-TRACE) Urine Glucose (UA) Negative mg/dL (NEG) Urine Ketones (Stick) Negative mg/dL (NEG) Urine Blood Large (NEG) Urine Nitrite Positive (NEG) Urine Bilirubin Negative (NEG) Urine Urobilinogen Dipstick 0.2 mg/dL (0.2 mg/dL) Urine Leukocyte Esterase Large (NEG) Urine RBC 6-10 /HPF (0-2) Urine WBC Tntc /HPF (0-4) Urine Bacteria Many /HPF (0-FEW) White Blood Count 11.9 x10^3/uL (4.0-11.0) 7.8 x10^3/uL (4.0-11.0) Red Blood Count 4.60 x10^6/uL (3.50-5.40) 4.22 x10^6/uL (3.50-5.40) Hemoglobin 11.8 g/dL (12.0-15.5) 11.2 g/dL (12.0-15.5) Hematocrit 36.8 % (36.0-47.0) 33.7 % (36.0-47.0) Mean Corpuscular Volume 80 fL (79-100) 80 fL (79-100) Mean Corpuscular Hemoglobin 26 pg (25-35) 27 pg (25-35) Mean Corpuscular Hemoglobin Concent 32 g/dL (31-37) 33 g/dL (31-37) Red Cell Distribution Width 15.5 % (11.5-14.5) 15.5 % (11.5-14.5) Platelet Count 262 x10^3/uL (140-400) 261 x10^3/uL (140-400) Neutrophils (%) (Auto) 87 % (31-73) 80 % (31-73) Lymphocytes (%) (Auto) 7 % (24-48) 11 % (24-48) Monocytes (%) (Auto) 5 % (0-9) 7 % (0-9) Eosinophils (%) (Auto) 0 % (0-3) 2 % (0-3) Basophils (%) (Auto) 0 % (0-3) 0 % (0-3) Neutrophils # (Auto) 10.4 x10^3/uL (1.8-7.7) 6.3 x10^3/uL (1.8-7.7) Lymphocytes # (Auto) 0.9 x10^3/uL (1.0-4.8) 0.9 x10^3/uL (1.0-4.8) Monocytes # (Auto) 0.6 x10^3/uL (0.0-1.1) 0.5 x10^3/uL (0.0-1.1) Eosinophils # (Auto) 0.0 x10^3/uL (0.0-0.7) 0.1 x10^3/uL (0.0-0.7) Basophils # (Auto) 0.0 x10^3/uL (0.0-0.2) 0.0 x10^3/uL (0.0-0.2) Segmented Neutrophils % 82 % (35-66) Band Neutrophils % 5 % (0-9) Lymphocytes % 7 % (24-48) Monocytes % 5 % (0-10) Eosinophils % 1 % (0-5) Platelet Estimate Adequate (ADEQUATE) Prothrombin Time 13.8 SEC (11.7-14.0) Prothromb Time International Ratio 1.1 (0.8-1.1) Sodium Level 141 mmol/L (136-145) 142 mmol/L (136-145) Potassium Level 4.3 mmol/L (3.5-5.1) 3.9 mmol/L (3.5-5.1) Chloride Level 105 mmol/L (98-107) 107 mmol/L (98-107) Carbon Dioxide Level 30 mmol/L (21-32) 29 mmol/L (21-32) Anion Gap 6 (6-14) 6 (6-14) Blood Urea Nitrogen 17 mg/dL (7-20) 14 mg/dL (7-20) Creatinine 0.6 mg/dL (0.6-1.0) 0.6 mg/dL (0.6-1.0) Estimated GFR (Cockcroft-Gault) 100.6 100.6 BUN/Creatinine Ratio 28 (6-20) 23 (6-20) Glucose Level 84 mg/dL (70-99) 88 mg/dL (70-99) Calcium Level 8.1 mg/dL (8.5-10.1) 7.8 mg/dL (8.5-10.1) Magnesium Level 2.0 mg/dL (1.8-2.4) Total Bilirubin 0.4 mg/dL (0.2-1.0) 0.3 mg/dL (0.2-1.0) Aspartate Amino Transf (AST/SGOT) 16 U/L (15-37) 16 U/L (15-37) Alanine Aminotransferase (ALT/SGPT) 18 U/L (14-59) 17 U/L (14-59) Alkaline Phosphatase 52 U/L (46-116) 49 U/L (46-116) Troponin I Quantitative < 0.017 ng/mL (0.000-0.055) < 0.017 ng/mL (0.000-0.055) < 0.017 ng/mL (0.000-0.055) CD-Ecy-B-Type Natriuretic Peptide 123 pg/mL (0-124) Total Protein 5.6 g/dL (6.4-8.2) 5.5 g/dL (6.4-8.2) Albumin 2.5 g/dL (3.4-5.0) 2.4 g/dL (3.4-5.0) Albumin/Globulin Ratio 0.8 (1.0-1.7) 0.8 (1.0-1.7) Thyroid Stimulating Hormone (TSH) 1.370 uIU/mL (0.358-3.74) VTE Prophylaxis Ordered VTE Prophylaxis Devices: Yes VTE Pharmacological Prophylaxi: No Assessment/Plan Assessment/Plan Urinary tract infection Dentalized weakness Wheelchair-bound status Cerebellar ataxia History of autoimmune disease unspecified Leukocytosis most likely secondary to the urinary tract infection Normocytic anemia most likely of chronic inflammation Severe protein calorie malnutrition Upper extremities contractures Plan Continue with IV antibiotics Follow urine culture Resume home medications Re-eval in the a.m. PT OT consult Further commendations based on the clinical course DVT prophylaxis with Lovenox Justifications for Admission Other Justification KATIE SERRANO MD Feb 05, 2020 11:58
[2020-02-05 15:00] VITALS: BP 120/42
[2020-02-05] MEDS: IV NORMAL SALINE 1000ML BAG 1,000 ML IV SCH (16:40)
[2020-02-05 19:00] VITALS: BP 118/58
[2020-02-05] MEDS: cefTRIAXone IV Push 1 GM VIAL. IVP SCH (20:15)
[2020-02-05 23:00] VITALS: BP 123/70
[2020-02-06 03:00] VITALS: BP 118/58
[2020-02-06] MEDS: IV NORMAL SALINE 1000ML BAG 1,000 ML IV SCH (03:42)
[2020-02-06 07:00] VITALS: BP 123/53
[2020-02-06] MEDS: APIXABAN 5 MG TABLET. PO SCH ×2 (08:35→21:00)
[2020-02-06] MEDS: LACTOBACILLUS RHAMNOSUS GG 1 CAPSULE. PO SCH (08:36)
[2020-02-06] MEDS: OXYBUTYNIN CHLORIDE 5 MG TABLET PO SCH (08:36)
[2020-02-06] MEDS: ANTI-COAG MONITOR BY PHARMACY. MC PRN (10:20)
[2020-02-06 11:00] VITALS: BP 120/48
--- NOTE | 2020-02-06 11:31 | PDOC ---
[facility] PROGRESS NOTE Date of Service DOS: DATE: 02/06/20 TIME: 11:16 Chief Complaint Chief Complaint pneumonia, choking, weakness, UTI cerebellar ataxia FHx Breast cancer, FHx leukemia History of Present Illness History of Present Illness 02/06/2020 pt seen and examined DW RN hoping to d/c tomorrow AM Vitals/I&O Vitals/I&O: Vital Signs Date Time Temp Pulse Resp B/P (MAP) Pulse Ox O2 Delivery O2 Flow Rate FiO2 02/06/20 11:00 97.9 80 16 120/48 (72) 97 Room Air 97.9 l I & O 02/05/20 02/05/20 02/06/20 15:00 23:00 07:00 Intake Total 540 ml 300 ml 1440 ml Balance 540 ml 300 ml 1440 ml Physical Exam General: Alert, Oriented X3, Cooperative Heart: Regular rate, No murmurs Lungs: Crackles Review of Systems Review of Systems: co weakness b/l LE co instability b/l LE Assessment and Plan Assessmemt and Plan Problems Medical Problems: (1) Generalized weakness Status: Acute (2) UTI (urinary tract infection) Status: Acute Wheelchair-bound status Cerebellar ataxia Upper extremities contractures FHx breast cancer, FHx leukemia Plan Continue with IV antibiotics Continue with IV fluids Pepside 20mg BID Continue with home medications PT OT consult DVT prophylaxis with Lovenox Hope to d/c tomorrow AM Full code Comment Review of Relevant I have reviewed the following items sagrario (where applicable) has been applied. Medications: Current Medications Medications (Trade) Dose Ordered Sig/Devendra Route PRN Reason Start Time Stop Time Status Last Admin Dose Admin Ceftriaxone Sodium (Rocephin) 1 gm Q24H IVP 02/05/20 20:00 02/05/20 20:15 Justifications for Admission Other Justification RADHA BONDS III DO Feb 06, 2020 11:31
[2020-02-06] MEDS: FAMOTIDINE 20 MG TABLET. PO SCH ×2 (11:42→21:40)
[2020-02-06 15:00] VITALS: BP 110/62
[2020-02-06 19:00] VITALS: BP 129/37
[2020-02-06] MEDS: cefTRIAXone IV Push 1 GM VIAL. IVP SCH (19:48)
[2020-02-06 23:00] VITALS: BP 130/55
[2020-02-07 03:00] VITALS: BP 124/57
[2020-02-07] MEDS: IV NORMAL SALINE 1000ML BAG 1,000 ML IV SCH (05:10)
[2020-02-07 07:00] VITALS: BP 134/59
[2020-02-07] MEDS: OXYBUTYNIN CHLORIDE 5 MG TABLET PO SCH (09:19)
[2020-02-07] MEDS: FAMOTIDINE 20 MG TABLET. PO SCH (09:19)
[2020-02-07] MEDS: APIXABAN 5 MG TABLET. PO SCH (09:19)
[2020-02-07] MEDS: LACTOBACILLUS RHAMNOSUS GG 1 CAPSULE. PO SCH (09:19)
[2020-02-07 11:00] VITALS: BP 119/59
[2020-02-07] MEDS ORDERED: OXYMETAZOLINE 0.05% NASAL SPRAY 30ML BOTTLE. NS SCH (11:00)
--- NOTE | 2020-02-07 12:00 | SNU/HH DC ---
DISCHARGE WITH HOME HEALTH DISCHARGE INFORMATION: Final Diagnosis: Problems Medical Problems: (1) Generalized weakness Status: Acute (2) UTI (urinary tract infection) Status: Acute Condition on Discharge: Stable CODE STATUS: Code Status: Full HOME HEALTH: Face to Face: I certify this patient is under my care and that I, or a nurse practitioner or physician's assistant import manager working with me, had a face to face encounter that meets the physician face to face encounter requirements with this patient on []. Medical Complications: Other (Cerebellar ataxia) Jail For: Assess & Educate Safety RN For Eval/Treatment: Yes Physical Therapy For: Evalulation/Treatment Occupational Therapy For: Evaluation/Treatment Home Health Aide For: Self-care POSITION CLASSIFICATION MANAGER For: Community Resources Pt Meets Homebound Status: Poor coordination w/ amb. POST DISCHARGE ORDERS: Activity Instructions for Disc: No restrictions, Activity as tolerated Weight Bearing Status after Di: As tolerated DIET AFTER DISCHARGE: Cardiac TREATMENT/EQUIPMENT ORDERS: Adaptive Equipment Issued: None CERTIFICATION STATEMENT: Certification Statement: Certification Statement: Based on the above finding, I certify that this patient is confined to the home and needs intermittent alf care, physical therapy and/or speech therapy, or continues to need occupational therapy.~ This patient is under my care, and I have initiated the establishment of the plan of care.~ This patient will be followed by myself or a community physician who will periodically review the plan of care. Home Meds Active Scripts Levofloxacin (LEVAQUIN) 500 Mg Tablet, 1 TAB PO DAILY, #7 TAB Prov:JESS PHAN MD 08/09/17 Reported Medications Oxybutynin Chloride (OXYBUTYNIN CHLORIDE) 5 Mg Tablet, 10 MG PO DAILY, #60 TAB 5 Refills 04/22/17 Alendronate Sodium (FOSAMAX) 70 Mg Tablet, 1 TAB PO QWE, #4 TAB 11 Refills 04/22/17 Lactobacillus Acidophilus (PROBIOTIC) 1 Each Capsule, 1 EACH PO DAILY 11/21/13 Naproxen (NAPROXEN) 500 Mg Tablet, 500 MG PO BID PRN for PAIN 11/21/13 RADHA BONDS III DO Feb 07, 2020 12:00
--- NOTE | 2020-02-07 12:11 | PDOC ---
[facility] [facility] PROGRESS NOTE Date of Service DOS: DATE: 02/07/20 TIME: 12:05 Chief Complaint Chief Complaint UTI, weakness, pneumonia, choking cerebellar ataxia FHx Breast cancer, FHx leukemia History of Present Illness History of Present Illness 02/07/2020 Pt seen and examined. RACQUEL RN. RACQUEL case management. RACQUEL family present. 02/06/2020 pt seen and examined RACQUEL RN hoping to d/c tomorrow AM Vitals/I&O Vitals/I&O: Vital Signs Date Time Temp Pulse Resp B/P (MAP) Pulse Ox O2 Delivery O2 Flow Rate FiO2 02/07/20 11:00 98.2 87 16 119/59 (79) 98 Room Air 98.2 I & O 02/06/20 02/06/20 02/07/20 15:00 23:00 07:00 Intake Total 240 ml 400 ml 120 ml Balance 240 ml 400 ml 120 ml Physical Exam General: Alert, Oriented X3, Cooperative Heart: Normal S1, Normal S2 Lungs: Clear, Crackles Abdomen: Normal bowel sounds, Soft Extremities: Other (Upper extremities contractures) Skin: No rashes Review of Systems Review of Systems: weakness, difficulty moving thumbs Assessment and Plan Assessmemt and Plan Problems Medical Problems: (1) Generalized weakness Status: Acute (2) UTI (urinary tract infection) Status: Acute Assessment: UTI Cerebellar ataxia Wheelchair-bound status Upper extremities contractures FHx breast cancer, FHx leukemia Plan: Continue with oral antibiotics. Continue with home medications PT OT DVT prophylaxis with Lovenox Pt declined longterm facility, but would prefer home health with [facility]. Discussed adapting botox treatment for hand contractures. Full code Comment Review of Relevant I have reviewed the following items sagrario (where applicable) has been applied. Justifications for Admission Other Justification RADHA BONDS III DO Feb 07, 2020 12:11
[2020-02-07 15:00] VITALS: BP 144/75
--- NOTE | 2020-02-07 16:30 | NUR ---
This patient was escorted to main entrance by family member to private vehicle. Home with Home Health. Pt belongings with her, escorted by wheelchair by Christi Marcelo.
--- NOTE | 2020-02-12 14:09 | DS ---
DATE OF DISCHARGE: 02/07/2020 ADMISSION DIAGNOSES: Urinary tract infection and weakness. DISCHARGE DIAGNOSES: Resolving urinary tract infection, resolving weakness, chronic cerebellar ataxia. HOSPITAL COURSE: The patient is a pleasant 64-year-old female, who has chronic cerebellar ataxia. She is quite debilitated because of this. Basically, she presented with progression of her disease with weakness. She was also noted to have a UTI. We admitted the patient. We gave her IV fluids, IV antibiotics, did physical therapy, occupational therapy, consulted Neurology, and basically, she returned to her baseline. We discharged her to home. DISPOSITION: Home with home health. ACTIVITY: As tolerated. DIET: Low sodium. MEDICATIONS: Please see the MRAD. TOTAL TIME: 32 minutes. RADHA BONDS DO DR: ISAÍAS/wilma JOB#: [id number] / [id number]
== END 2020-02-07 17:00 | disposition home health service (06) | DRG 871 ==
LOC: ER 17:40 → 4 NORTH 22:02
PROVIDERS: ADMIT Family Medicine; ATTEND Family Medicine
DX: A41.9 Sepsis, unspecified organism (principal); E43 Unspecified severe protein-calorie malnutrition; J18.9 Pneumonia, unspecified organism; N39.0 Urinary tract infection, site not specified; G11.9 Hereditary ataxia, unspecified; D64.9 Anemia, unspecified; M24.50 Contracture, unspecified joint; M81.0 Age-related osteoporosis without current pathological fracture; Z80.3 Family history of malignant neoplasm of breast; Z80.6 Family history of leukemia; Z82.49 Family history of ischemic heart disease and other diseases of the circulatory system; Z87.440 Personal history of urinary (tract) infections; Z90.710 Acquired absence of both cervix and uterus; Z99.3 Dependence on wheelchair; K21.9 Gastro-esophageal reflux disease without esophagitis; Z88.8 Allergy status to other drugs, medicaments and biological substances; Z79.899 Other long term (current) drug therapy; Z88.2 Allergy status to sulfonamides
CPT/HCPCS: 36415; 70450; 71045; 80053; 81001; 83735; 83880; 84443; 84484; 85007; 85025; 85610; 87086; 93005; 96361; 96374; J0696; J7030; 97530-GO; 99285-25; G0378

== ENCOUNTER → 2020-10-26 | Outpatient (CLI) | payer MEDICARE, OTHER ==
--- NOTE | 2020-10-26 17:18 | KCIC ---
EXAM: Bilateral screening mammogram. HISTORY: 64-year-old female presents for screening mammography. TECHNIQUE: Full-field digital craniocaudal and mediolateral oblique views of both breasts are obtaine d for evaluation. Computer aided detection was applied. COMPARISON: 11/10/2017 BREAST PARENCHYMAL DENSITY: Level C - Heterogeneously dense. FINDINGS: There is no new suspicious mass, microcalcification or region of architectural distortion. There are stable areas of asymmetry within both breasts. There are benign calcifications. IMPRESSION: BI-RADS Category 2: Benign finding(s). RECOMMENDATION: Annual mammography is recommended. If your mammogram demonstrates that you have dense breast tissue, which could hide abnormalities, and if you have other risk factors for breast cancer that have been identified, you might benefit from s upplemental screening tests that may be suggested by your ordering physician. Dense breast tissue, i n and of itself, is a relatively common condition. This information is not provided to cause undue c oncern, but rather to raise your awareness and to promote discussion with your physician regarding th e presence of other risk factors, in addition to dense breast tissue. A report of your mammography re sults will be sent to you and your physician. You should contact your physician if you have any ques tions or concerns regarding this report. Mammography is a sensitive method for finding small breast cancers, but it does not detect them all a nd is not a substitute for careful clinical examination. A negative mammogram does not negate a clin ically suspicious finding and should not result in delay in biopsying a clinically suspicious abnorma lity. PQRS compliance statement - Patient information was entered into a reminder system with a target due date for the next mammogram. "Our facility is accredited by the [employer] Mammography Program." Electronically signed by: Madie Flores MD (10/26/2020 5:16 PM) [email or web address]
== END ==
LOC: KCIC 14:45
PROVIDERS: ATTEND Nurse Practitioner Family
DX: Z12.31 Encounter for screening mammogram for malignant neoplasm of breast (principal)
CPT/HCPCS: 77067